=== PATIENT | female | born 1970 | race Hispanic/Latino ===

== ENCOUNTER 2019-01-16 06:32 | Inpatient (IN) | payer OTHER ==
[2019-01-15 14:48] LABS: BASOPHILS % 0.4 % (0.0-1.0); EOSINOPHILS # (AUTO) 0.2 (0.0-0.4); EOSINOPHILS % 2.4 % (0.0-6.0); HEMATOCRIT 38.8 % (34.2-44.1); HEMOGLOBIN 12.3 g/dL (12.0-16.0); LYMPHOCYTES # (AUTO) 1.9 (1.0-3.2); MEAN CORPUSCULAR HEMOGLOBIN 26.7 pg (28-32); MEAN CORPUSCULAR HGB CONC 31.7 g/dL (31-35); MEAN CORPUSCULAR VOLUME 84.2 fL (81-99); MONOCYTES # (AUTO) 0.6 (0.2-0.8); MONOCYTES % 8.7 % (4.4-11.3); NEUTROPHILS # (AUTO) 4.4 (2.1-6.9); NEUTROPHILS % 61.2 % (38.7-80.0); PLATELET COUNT 201 x10e3/uL (140-360); RED BLOOD COUNT 4.61 x10e6/uL (3.6-5.1); RED CELL DISTRIBUTION WIDTH 14.4 % (11.7-14.4)
[2019-01-15 14:56] LABS: ANION GAP 12.8 mmol/L (8-16); BLOOD UREA NITROGEN 7 mg/dL (7-26); BUN/CREATININE RATIO 10 (6-25); CALCIUM 9.7 mg/dL (8.4-10.2); CARBON DIOXIDE 25 mmol/L (22-29); CHLORIDE 104 mmol/L (98-107); CREATININE, SERUM 0.71 mg/dL (0.57-1.11); EST GLOMERULAR FILTRATION RATE > 60 ML/MIN (60-); GLUCOSE 85 mg/dL (74-118); POTASSIUM 3.8 mmol/L (3.5-5.1); SODIUM 138 mmol/L (136-145)
[~2019-01-16] VITALS: Ht 170.2 cm; Wt 94.8 kg
[2019-01-16] MEDS ORDERED: BUPIVACAINE 0.25%/EPI 30ML SDV INJ ONE (08:42)
[2019-01-16] MEDS ORDERED: LEVOFLOXACIN 500MG/D5W 100ML 100 ML IV ONE ×2 (09:14→11:30)
[2019-01-16] MEDS ORDERED: ACETAMINOPHEN 1000 MG/100 ML IV PRN ×3 (11:30→14:00)
[2019-01-16] MEDS ORDERED: HYDROMORPHONE 1MG/1ML INJ IV PRN (11:30)
[2019-01-16] MEDS ORDERED: PANTOPRAZOLE 40 MG 10ML VIAL IV SCH (11:30)
[2019-01-16] MEDS ORDERED: FENTANYL CITRATE/PF 100MCG/2 ML INJ ONE ×2 (11:45→14:25)
[2019-01-16] MEDS ORDERED: ONDANSETRON HCL INJ 2MG/ML 2ML 2 MG/ML VIAL ONE (12:05)
--- NOTE | 2019-01-16 12:23 | NUR ---
RECEIVED REPORT FROM ESTEPHANIE IN PACU . AWAITING FOR PT TO ARRIVE TO UNIT
--- NOTE | 2019-01-16 12:28 | NUR ---
PT ARRIVED TO FLOOR AA0X3, BUT DROWSY PT C/O PAIN TO LLQ RATING IT A 7/10 PT RECEIVED PAIN MED RIGHT BEFORE TRANSFER WILL AWAIT FOR ADDITIONAL PAIN MEDS AT THIS TIME SURGICAL DRESSING SITE IS CLEAN AND DRY. IV TO THE RIGHT HAND PATENT AND ON IV FLUIDS, PT IS ON CLEAR LIQUID TOLERATING ICE CHIPS WELL WILL CONTINUE TO MONITOR CLOSELY. SIDE RAILSX2, BED WHEELS LOCKED ,CALL LIGHT IS WITHIN EASY REACH, INSTRUCTED TO CALL FOR ASSISTANCE IF NEEDED
[2019-01-16 12:30] VITALS: BP 118/56
[2019-01-16 12:46] VITALS: BP 118/56
[2019-01-16] MEDS: SODIUM CHLORIDE 0.9% 1000ML 1,000 ML IV SCH ×2 (13:11→20:59)
[2019-01-16] MEDS: HYDROMORPHONE 2MG/ML 2 MG/ML ML IV PRN ×3 (13:46→21:05)
[2019-01-16] MEDS ORDERED: MIDAZOLAM HCL 2 MG/2 ML VIAL ONE (14:25)
[2019-01-16] MEDS ORDERED: KETAMINE HCL INJ 50 MG/ML 10 ML VIAL ONE (14:25)
[2019-01-16 16:27] VITALS: BP 127/60
--- NOTE | 2019-01-16 16:47 | NUR ---
pt voided into toilet s/p sx
[2019-01-16] MEDS ORDERED: GLYCOPYRROLATE INJ 1MG/ 5 ML SYR ONE (17:35)
[2019-01-16] MEDS ORDERED: LIDOCAINE HCL 2% LOCAL INJ 5 ML SDV VIAL INJ ONE (17:35)
[2019-01-16] MEDS ORDERED: ROCURONIUM BROMIDE 10 MG/ML 5ML VIAL ONE (17:35)
[2019-01-16] MEDS ORDERED: PROPOFOL IV EMULSION 10 MG/ML 20 ML VIAL ONE (17:35)
[2019-01-16] MEDS ORDERED: NEOSTIGMINE 5 MG/5ML SYR ONE (17:35)
[2019-01-16] MEDS ORDERED: EPHEDRINE SULFATE INJ 50 MG/10 ML SYR ONE (17:35)
[2019-01-16] MEDS ORDERED: DEXAMETHASONE SOD PHOS INJ 4 MG/ML VIAL ONE (17:35)
[2019-01-16] MEDS ORDERED: ACETAMINOPHEN 1000 MG/100 ML IV ONE (17:35)
--- NOTE | 2019-01-16 18:18 | Operative Report ---
DATE OF PROCEDURE: 01/16/2019 SURGEON: Severino Hummel MD PREOPERATIVE DIAGNOSIS: Multiple recurrent left lower quadrant ventral hernia, incarcerated. POSTOPERATIVE DIAGNOSIS: Multiple recurrent left lower quadrant ventral hernia, incarcerated. OPERATION PERFORMED: Repair of multiple recurrent incarcerated ventral hernia with mesh. ANESTHESIA: General. COMPLICATIONS: None. ESTIMATED BLOOD LOSS: 25 mL. DESCRIPTION OF PROCEDURE: With the patient lying in bed in the lateral position under good general endotracheal anesthesia, the left flank and abdomen were prepped with Betadine solution and draped in the usual manner. Part of the incision of the previous posterolateral incision for the previous nephrectomy was then opened and incision was carried down through the subcutaneous tissue and immediately some mesh was encountered. There were multiple sutures of Prolene of different sizes that were identified. The mesh was then opened and underneath the mesh immediately a hernia sac was encountered. There was a defect that extended underneath the mesh and above the musculature all the way down to the left lower quadrant. The hernia contained some omentum and part of the left colon and some small bowel. All of this was and reduced back to the intraabdominal cavity. All of the omentum was then from the edge of the hernia from the underlying mesh that had been placed in one of the other repairs. The left colon was then off the white line so that it would drop further into the abdominal cavity and stay away from the repair. At this point, we had dissected all of the edges of the incision, we could clearly see the musculature totally creating a large defect in the area. A large Ventralex patch was then placed intra-abdominally and was tacked all the way around using interrupted sutures of #1 Prolene anchoring the mesh all the way around the lateral aspect covering the hernia defect several inches all the way around. Once this was done, the muscle defects were then closed with interrupted sutures of #1 Prolene again reapproximating all the fascia in the area and getting a satisfactory repair anchoring the Ventralex patch with the closure. After this was done, the whole area was thoroughly irrigated, perfect hemostasis was ascertained. All layers were infiltrated on the way out with solution of 0.25% Marcaine. The previous onlay mesh that was present was then anchored and closed using running sutures of #1 Prolene. The subcutaneous tissue was approximated with 2-0 Vicryl and the skin was closed with clips. A dressing was applied. The sponge, lap, and needle count was correct. The patient tolerated the procedure well and returned to the recovery room in stable condition. MD HOUSTON Lim/KRISTYN /[id number]
--- NOTE | 2019-01-16 19:45 | NUR ---
Ambulates.voided.assessment done.no resp.distress.abd dressing is dry and intact.bed locked and in lowest position.phone and call light within reach.informed to call for assistance as needed.stable condition.
[2019-01-16 20:00] VITALS: BP 126/60
[2019-01-16 21:00] VITALS: BP 126/60
[2019-01-17] VITALS (8 sets, daily range): BP systolic 132–140; BP diastolic 62–65
[2019-01-17] MEDS: HYDROMORPHONE 2MG/ML 2 MG/ML ML IV PRN ×2 (00:05→06:09)
--- NOTE | 2019-01-17 00:20 | NUR ---
Tolerate the diet.Lyeing comfortably in the bed.stable condition.
[2019-01-17] MEDS: SODIUM CHLORIDE 0.9% 1000ML 1,000 ML IV SCH ×2 (06:13→17:40)
[2019-01-17 06:30] LABS: BASOPHILS % 0.2 % (0.0-1.0); EOSINOPHILS % 0.1 % (0.0-6.0); HEMATOCRIT 36.1 % (34.2-44.1); HEMOGLOBIN 11.5 g/dL (12.0-16.0); LYMPHOCYTES # (AUTO) 1.5 (1.0-3.2); LYMPHOCYTES % 11.2 % (18.0-39.1); MEAN CORPUSCULAR HEMOGLOBIN 27.1 pg (28-32); MEAN CORPUSCULAR HGB CONC 31.9 g/dL (31-35); MEAN CORPUSCULAR VOLUME 85.1 fL (81-99); MONOCYTES # (AUTO) 0.9 (0.2-0.8); MONOCYTES % 7.2 % (4.4-11.3); NEUTROPHILS # (AUTO) 10.5 (2.1-6.9); PLATELET COUNT 204 x10e3/uL (140-360); RED BLOOD COUNT 4.24 x10e6/uL (3.6-5.1); RED CELL DISTRIBUTION WIDTH 14.6 % (11.7-14.4)
[2019-01-17 06:55] LABS: ANION GAP 10.9 mmol/L (8-16); BLOOD UREA NITROGEN 6 mg/dL (7-26); BUN/CREATININE RATIO 9 (6-25); CALCIUM 9.1 mg/dL (8.4-10.2); CARBON DIOXIDE 26 mmol/L (22-29); CHLORIDE 108 mmol/L (98-107); CREATININE, SERUM 0.67 mg/dL (0.57-1.11); EST GLOMERULAR FILTRATION RATE > 60 ML/MIN (60-); GLUCOSE 119 mg/dL (74-118); POTASSIUM 3.9 mmol/L (3.5-5.1); SODIUM 141 mmol/L (136-145)
--- NOTE | 2019-01-17 07:32 | NUR ---
PT RESTING IN BED AA0X3. SISTER IS AT BEDSIDE. PT REMAINS ON CLEAR LIQUID DIET AND ON IV FLUIDS TO THE RIGHT HAND 20 WITH NS AT 100CC.HR. IV SITE IS CLEAN AND DRY PT SURGICAL SITE (LLQ ABDOMEN) REMAINS WITH DRESSING DRY AND INTACT. PT PAIN IS TOLERABLE. RECEIVING PRN DILAUDID . WILL CONTINUE TO MONITOR PT AT THIS TIME, SIDE RAILSX2, BED WHEELS LOCKED, CALL LIGHT IS WITHIN EASY REACH, INSTRUCTED TO CALL FOR ASSISTANCE IF NEEDED
[2019-01-17] MEDS: FAMOTIDINE 20 MG/2 ML VIAL IV SCH (08:51)
--- NOTE | 2019-01-17 08:58 | NUR ---
CALLED MD MARQUEZ REGARDING PT C/O NAUSEA BUT NOT VOMITING NEW ORDERS FOR PHENERGAN RECEIVED MD WILL ASSESS PT ON DIET ADVANCEMENT WHEN HE ROUNDS
[2019-01-17] MEDS ORDERED: LEVOFLOXACIN 500MG/D5W 100ML 100 ML IV ONE (09:00)
[2019-01-17] MEDS ORDERED: PROMETHAZINE 12.5MG/ NACL 0.9% 12.5 MG/50 ML BAG IV PRN (09:00)
[2019-01-17] MEDS: HYDROCODONE/APAP 7.5MG-325MG 1 EA TAB PO PRN ×3 (10:36→21:40)
--- NOTE | 2019-01-17 20:40 | NUR ---
Encouraged to do deep breathing and coughing exercise.abd.dressing is dry. bed locked and in lowest position.ambulates.phone and call light within reach.informed to call for assistance as needed.
[2019-01-18 00:13] VITALS: BP 134/62
[2019-01-18 04:00] VITALS: BP 153/69
[2019-01-18] MEDS: SODIUM CHLORIDE 0.9% 1000ML 1,000 ML IV SCH ×2 (04:00→12:58)
--- NOTE | 2019-01-18 06:50 | NUR ---
Report given to the oncoming rn.walking rounds done.stable condition.
[2019-01-18] MEDS: HYDROCODONE/APAP 7.5MG-325MG 1 EA TAB PO PRN ×3 (08:15→18:30)
[2019-01-18] MEDS: FAMOTIDINE 20 MG/2 ML VIAL IV SCH (08:18)
[2019-01-18 08:21] VITALS: BP 140/70
--- NOTE | 2019-01-18 08:23 | NUR ---
PT AMBULATED TO BR WITH FAMILY AT SIDE, VOIDING WITHOUT DIFFICULTY, REPORTS PASSING FLATUS, DENIES BM AT THIS TIME, MEDICATED PER MD ORDER FOR ABD PAIN -03/20, EDUCATED TO NOT GET OOB WITHOUT CALLING FOR ASSISTANCE, PT VERBALIZED UNDERSTANDING, ENCOURAGED PO INTAKE, PT STATES "WILL DRINK SOME BREAKFAST", CALL LIGHT WITHIN REACH
[2019-01-18 08:42] VITALS: BP 140/70
[2019-01-18 13:41] VITALS: BP 174/83
[2019-01-18 16:25] VITALS: BP 140/63
[2019-01-18] MEDS ORDERED: NORCO 7.5-3251 EACH PO (19:12)
[2019-01-18] MEDS ORDERED: LEVAQUIN500 MG PO (19:13)
--- NOTE | 2019-01-18 20:10 | NUR ---
PATIENT IS DISCHARGED TO HOME. DISCHARGE INSTRUCTIONS AND FOLLOW UP GIVEN, SHE VERBALIZED UNDERSTANDING. IV REMOVED WITH TIP INTACT, ALL PERSONAL ITEMS TAKEN WITH PATIENT. LEFT UNIT PER WHEELCHAIR IN STABLE CONDITION TO THE FRONT LOBBY.
== END 2019-01-18 20:05 | disposition home or self-care (01) | DRG 355 ==
LOC: OR 06:32 → PACU V 11:29 → MED/SURG 12:30
PROVIDERS: ADMIT Surgery; ATTEND Surgery
PROC: 0WUF0JZ Supplement Abdominal Wall with Synthetic Substitute, Open Approach (ICD-10-PCS; principal; 2019-01-16 07:30)
DX: K43.0 Incisional hernia with obstruction, without gangrene (principal); Z28.21 Immunization not carried out because of patient refusal; Z88.0 Allergy status to penicillin
CPT/HCPCS: 36415; 80048; 81025; 85025; 93005; C1781; J1100; J1956; J2001; J2250; J2405; J2550; J7030